=== PATIENT | female | born 1950 | race Caucasian/White ===

== ENCOUNTER 2016-12-18 09:41 | Outpatient (CLI) | payer MEDICARE, OTHER ==
--- NOTE | 2016-12-18 11:34 | XRAY Report ---
THREE-VIEW LEFT ANKLE: 12/18/2016 CLINICAL INDICATION: Pain after trauma. FINDINGS: AP, lateral, oblique views of the left ankle demonstrate no evidence of acute fracture or dislocation. The joint spaces are preserved. Lateral soft tissue swelling is seen. IMPRESSION: SOFT TISSUE SWELLING, BUT NO EVIDENCE OF ACUTE FRACTURE. 11:9:00 JOB #: [id number] EXT JOB #:[id number]
--- NOTE | 2016-12-18 11:34 | XRAY Report ---
THREE-VIEW LEFT SHOULDER: 12/18/2016 CLINICAL INDICATION: Pain. FINDINGS: Internal and external rotational views and a scapular Y view of the left shoulder demonstr ate a minimally displaced fracture of the greater humeral tuberosity, best seen on the internal rotat ion view. Hypertrophic changes are noted in the AC joint. No radiopaque foreign body is seen in the soft tissues. IMPRESSION: MINIMALLY DISPLACED FRACTURE OF THE GREATER HUMERAL TUBEROSITY. JOB #: [id number] EXT JOB #:[id number]
== END 2016-12-18 09:42 | disposition home or self-care (01) ==
LOC: DI 09:41
PROVIDERS: ATTEND Registered Nurse
DX: S42.251A Displaced fracture of greater tuberosity of right humerus, initial encounter for closed fracture (principal); M25.572 Pain in left ankle and joints of left foot; R22.42 Localized swelling, mass and lump, left lower limb

== ENCOUNTER 2018-02-22 08:53 | Emergency (ER) | payer MEDICARE, OTHER ==
[2018-02-22] MEDS ORDERED: TETANUS/DIPHTHERIA/PERTUSSIS 0.5 ML SYRINGE IM ONE (09:20)
--- NOTE | 2018-02-22 09:22 | ED Physician Documentation ---
PD HPI UPPER EXT INJURY - Stated complaint Stated Complaint: FINGER LAC - Chief complaint Chief Complaint: Laceration - History obtained from History obtained from: Patient - History of Present Illness Location: Left, Finger (index) Type of injury: Puncture wound Where injury occurred: Home Timing - onset: Yesterday Timing - duration: Days (1) Timing - details: Abrupt onset, Still present Improved by: Rest Worsened by: Moving, Palpating Associated symptoms: No: Weakness, Numbness, Tingling Contributing factors: No: Anticoagulated Similar symptoms before: Diagnosis (puncture wound laceration) Recently seen: Not recently seen - Additonal information Additional information: Previously healthy 67-year-old female was using a screwdriver doing some picture framing when she stabbed herself in the index finger with the screwdriver. She did local wound care and was able to control the bleeding wound appears to be healing and she is not up-to-date on her tetanus. She has come in today with concerns about tetanus. Review of Systems Constitutional: denies: Fever Ears: denies: Ear pain Nose: denies: Congestion Throat: denies: Sore throat Respiratory: denies: Cough GI: denies: Vomiting Skin: reports: Laceration (s) Musculoskeletal: reports: Extremity pain. denies: Neck pain, Back pain Neurologic: denies: Generalized weakness, Focal weakness, Numbness PD PAST MEDICAL HISTORY - Past Medical History Endocrine/Autoimmune: HyPOthyroidism GI: Other - Past Surgical History HEENT: Tonsil/Adenoidectomy - Present Medications Home Medications: Ambulatory Orders Medication Instructions Recorded Confirmed Ibuprofen 600 mg PO ONCE 09/12/14 09/12/14 Levothyroxine [Synthroid] 150 mcg PO DAILY 09/12/14 09/12/14 Loperamide [Imodium] 2 mg PO ONCE 09/12/14 09/12/14 - Allergies Allergies/Adverse Reactions: Allergies Allergy/AdvReac Type Severity Reaction Status Date / Time No Known Drug Allergies Allergy Verified 02/22/18 09:06 - Social History Does the pt smoke?: Yes Smoking Status: Current every day smoker Does the pt drink ETOH?: Yes - Immunizations Immunizations are current?: Yes PD ED PE NORMAL - Vitals Vital signs reviewed: Yes (hypertensive) - General General: Alert and oriented X 3, No acute distress, Well developed/nourished - HEENT HEENT: Atraumatic, PERRL - Respiratory Respiratory: No respiratory distress - Derm Derm: Normal color, Warm and dry, No rash - Extremities Extremities: No deformity, No edema, Other (There is a superficial puncture wound to the pulp of the left index fingertip. There is no surrounding erythema or swelling and the wound appears to be healing well. ) - Neuro Neuro: Alert and oriented X 3, financial coach 2-12 intact, No motor deficit, No sensory deficit, Normal speech Eye Opening: Spontaneous Motor: Obeys Commands Verbal: Oriented GCS Score: 15 - Psych Psych: Normal mood, Normal affect Results - Vitals Vitals: Vital Signs - 24 hr 02/22/18 02/22/18 09:03 09:50 Temperature 36.8 C Heart Rate 70 72 Respiratory 20 20 Rate Blood Pressure 148/94 H 142/78 H O2 Saturation 98 98 Oxygen O2 Source Room air PD MEDICAL DECISION MAKING - ED course Complexity details: considered differential, d/w patient ED course: 67-year-old female with a fairly superficial laceration with some puncture of the left index finger is not up-to-date on her tetanus. She is given a Boostrix immunization and will do local wound care. - Sepsis Event Vital Signs: Vital Signs - 24 hr 02/22/18 02/22/18 09:03 09:50 Temperature 36.8 C Heart Rate 70 72 Respiratory 20 20 Rate Blood Pressure 148/94 H 142/78 H O2 Saturation 98 98 Oxygen O2 Source Room air Departure - Departure Disposition: 01 Home, Self Care Clinical Impression: Puncture wound of finger of left hand Qualifiers: Encounter type: initial encounter Qualified Code(s): S61.239A - Puncture wound without foreign body of unspecified finger without damage to nail, initial encounter Condition: Stable Instructions: ED Wound Puncture General Follow-Up: Mirtha Aguilera ARNP [Primary Care Provider] - Discharge Date/Time: 02/22/18 09:51
[2018-02-22 09:52] VITALS: BP 142/78
== END 2018-02-22 09:51 | disposition home or self-care (01) ==
LOC: ED 08:53
DX: S61.231A Puncture wound without foreign body of left index finger without damage to nail, initial encounter (principal); Z23 Encounter for immunization; F17.200 Nicotine dependence, unspecified, uncomplicated; W27.0XXA Contact with workbench tool, initial encounter; Y93.89 Activity, other specified; Y92.009 Unspecified place in unspecified non-institutional (private) residence as the place of occurrence of the external cause
CPT/HCPCS: 90471; 99282

== ENCOUNTER 2021-07-03 08:00 | Outpatient (CLI) | payer MEDICARE, OTHER ==
--- NOTE | 2021-07-03 09:04 | XRAY Report ---
PROCEDURE: Elbow 3 View LT INDICATIONS: LEFT ELBOW PAIN TECHNIQUE: 3 views of the elbow were acquired. COMPARISON: None FINDINGS: Bones: There is a mildly impacted, mildly displaced fracture involving the lateral condyle. There is slight widening of the radiocapitellar articulation. The ulnohumeral joint remains normally located. No suspicious bony lesions. Soft tissues: Small elbow joint effusion. There is periarticular soft tissue thickening. No suspiciou s soft tissue calcifications. IMPRESSION: Mildly impacted and mildly displaced lateral condylar fracture and widening of the radiocapitellar trish int. Reviewed by: Maria Guadalupe Portillo MD on 07/03/2021 9:02 AM PST Approved by: Maria Guadalupe Portillo MD on 07/03/2021 9:02 AM PST Station ID: [id number]
== END 2021-07-03 23:59 | disposition home or self-care (01) ==
LOC: DI.S 08:00
PROVIDERS: ATTEND Physician Assistant
DX: S42.452A Displaced fracture of lateral condyle of left humerus, initial encounter for closed fracture (principal)